=== PATIENT | female | born 1980 | race Caucasian/White ===

== ENCOUNTER 2022-09-08 09:50 | Emergency (ER) | payer BC ==
[~2022-09-08] VITALS: Ht 165.1 cm; Wt 68.0 kg
[~2022-09-08 09:50] MED LIST: ESCI10TA PO; HYDR-914 PO; TEMA15CA5 PO; birth control
--- NOTE | 2022-09-08 10:12 | NUR ---
PT STATES SHE IS APPROX 7 WEEKS BY DATES.
--- NOTE | 2022-09-08 10:12 | NUR ---
PT STATES THAT SHE STARTED VAGINAL BLEEDING IN MIDDLE OF NIGHT, STATES THIS FEELS THE LAST MISCARRIAGE SHE HAD. STATES BLEEDING IS LIKE A PERIOD. PT STATES , PT STATES PAIN IS JUST LIKE PERIOD CRAMPS, IT IS TOLERABLE.
[2022-09-08 10:15] VITALS: BP_SYST 119
[2022-09-08 10:34] LABS: BASOPHILS % (AUTO) 0.3 % (0.0-2.0); EOSINOPHILS # (AUTO) 0.1 K/uL (0.0-0.4); EOSINOPHILS % (AUTO) 1.4 % (0.0-4.0); HEMATOCRIT 39.4 % (36-48); HEMOGLOBIN 13.9 g/dL (12.0-16.0); LYMPHOCYTES # (AUTO) 1.4 K/uL (1.0-5.5); LYMPHOCYTES % (AUTO) 32.7 % (20.5-51.5); MEAN CORPUSCULAR HEMOGLOBIN 33 pg (27-31); MEAN CORPUSCULAR HGB CONC 35 % (32-36); MEAN CORPUSCULAR VOLUME 94 fL (79.0-98.0); MONOCYTES # (AUTO) 0.3 K/uL (0.0-1.0); MONOCYTES % (AUTO) 5.9 % (1.7-9.3); NEUTROPHILS # (AUTO) 2.6 K/uL (1.8-7.7); NEUTROPHILS % (AUTO) 59.7 % (40.0-70.0); PLATELET COUNT (AUTO) 169 K/uL (130-430); RED CELL DISTRIBUTION WIDTH 11.8 % (9.0-15.0); WHITE BLOOD COUNT (AUTO) 4.4 K/uL (4.8-10.8)
[2022-09-08 10:54] LABS: CALCIUM 9.2 mg/dL (8.4-11.0); CREATININE 1.09 mg/dL (0.55-1.30); POTASSIUM 3.8 mmol/L (3.5-5.1)
--- NOTE | 2022-09-08 11:01 | NUR ---
TAKEN TO ULTRASOUND FOR TESTING
[2022-09-08 11:06] LABS: ALBUMIN 4.2 g/dL (3.4-4.8); TOTAL BILIRUBIN 0.4 mg/dL (0.0-1.0)
--- NOTE | 2022-09-08 11:14 | NUR ---
REPORT GIVEN TO SHER/CRISTIANO TO ASSUME CARE
[2022-09-08 12:03] VITALS: BP_SYST 119
--- NOTE | 2022-09-08 12:09 | NUR ---
Patient given written and verbal discharge instructions and verbalizes understanding. ER MD DR HAIRSTON discussed with patient the results and treatment provided. Patient in stable condition. ID arm band removed. Rx of HYDROCODONE, ESCITALOPRAM OXALATE, TEMAZEPAM given. Patient educated on pain management and to follow up with PMD. Pain Scale 2/10. Opportunity for questions provided and answered. Medication side effect fact sheet provided.
== END 2022-09-08 12:09 | disposition home or self-care (01) ==
LOC: SED 09:50
DX: O20.9 Hemorrhage in early pregnancy, unspecified (principal); N92.0 Excessive and frequent menstruation with regular cycle; Z3A.01 Less than 8 weeks gestation of pregnancy
CPT/HCPCS: 36415; 76801; 76817; 80053; 84702; 85025; 99284